=== PATIENT | female | born 1940 | race Caucasian/White ===

== ENCOUNTER 2018-01-01 12:23 | Inpatient (IN) | payer OTHER ==
[~2018-01-01] VITALS: Ht 160 cm; Wt 112.0 kg
[2018-01-01 12:24] VITALS: BP_SYST 164
[2018-01-01] MEDS ORDERED: methylPREDNISolone SOD SUCC/PF 62.5 MG/ML VIAL IVP ONE (12:45)
[2018-01-01] MEDS ORDERED: IPRATROPIUM BROM 0.5 MG/2.5 ML VIAL.NEB (ATROVENT) IH ONE (12:45)
[2018-01-01] MEDS ORDERED: ALBUTEROL SULFATE 0.083% 2.5 MG/3 ML VIAL.NEB IH ONE (12:45)
[2018-01-01] MEDS ORDERED: GLIM1TAB PO (12:49)
[2018-01-01] MEDS ORDERED: HYDR-4100 PO (12:49)
[2018-01-01] MEDS ORDERED: MONT10TA25 PO (12:49)
[2018-01-01] MEDS ORDERED: POTA8TAB4 PO (12:49)
[2018-01-01] MEDS ORDERED: METO25TA3 PO (12:49)
[2018-01-01] MEDS ORDERED: OMEP20CA10 PO (12:49)
[2018-01-01] MEDS ORDERED: VITD2000 PO (12:49)
[2018-01-01] MEDS ORDERED: NOR10 PO (12:49)
[2018-01-01] MEDS ORDERED: METO5TAB8 PO (12:49)
[2018-01-01] MEDS ORDERED: FURO-149 PO (12:49)
[2018-01-01] MEDS ORDERED: LINA5TAB2 PO (12:49)
[2018-01-01] MEDS ORDERED: LEVO50TA77 PO (12:49)
[2018-01-01] MEDS ORDERED: ASPI-1063 PO (12:49)
[2018-01-01] MEDS ORDERED: GABA-531 PO (12:49)
[2018-01-01] MEDS ORDERED: LATA2.5D6 OP (12:49)
[2018-01-01] MEDS ORDERED: ALBU8.5H8 INH (12:49)
[2018-01-01] MEDS ORDERED: ALLO100T91 PO (12:49)
[2018-01-01] MEDS ORDERED: NIFE90TA48 PO (12:49)
[2018-01-01 13:35] LABS: BASOPHILS % (AUTO) 0.4 % (0.0-2.0); EOSINOPHILS # (AUTO) 0.2 K/uL (0.0-0.4); EOSINOPHILS % (AUTO) 1.5 % (0.0-4.0); HEMATOCRIT 45.2 % (36-48); HEMOGLOBIN 14.6 g/dL (12.0-16.0); LYMPHOCYTES # (AUTO) 1.7 K/uL (1.0-5.5); MEAN CORPUSCULAR HEMOGLOBIN 28 pg (27-31); MEAN CORPUSCULAR HGB CONC 32 % (32-36); MEAN CORPUSCULAR VOLUME 86 fL (79.0-98.0); MONOCYTES # (AUTO) 0.7 K/uL (0.0-1.0); MONOCYTES % (AUTO) 6.4 % (1.7-9.3); NEUTROPHILS # (AUTO) 8.7 K/uL (1.8-7.7); NEUTROPHILS % (AUTO) 76.7 % (40.0-70.0); PLATELET COUNT (AUTO) 292 K/uL (130-430); RED BLOOD CELL COUNT(AUTO) 5.27 MIL/uL (4.2-6.2); RED CELL DISTRIBUTION WIDTH 16.5 % (9.0-15.0); WHITE BLOOD COUNT (AUTO) 11.3 K/uL (4.8-10.8)
[2018-01-01 14:19] LABS: INR 1.1 (0.8-1.2); PROTHROMBIN TIME 10.8 SECS (9.5-12.5)
[2018-01-01] MEDS ORDERED: ONDANSETRON HCL 4 MG/2 ML VIAL IVP ONE (14:30)
[2018-01-01 14:38] LABS: ANION GAP 9 (5-15); CALCIUM 10.3 mg/dL (8.4-11.0); CHLORIDE 97 mmol/L (98-107); CREATININE 1.42 mg/dL (0.55-1.30); GLUCOSE 163 mg/dL (70-99); POTASSIUM 3.3 mmol/L (3.5-5.1); SODIUM SERUM 134 mmol/L (136-145); UREA NITROGEN, BLOOD 19 mg/dL (8-21)
[2018-01-01 14:42] LABS: ALANINE AMINOTRANSFERASE 25 U/L (12-78); ALBUMIN 4.1 g/dL (3.4-4.8); ASPARTATE AMINOTRANSFERASE 20 U/L (10-37); TOTAL BILIRUBIN 1.1 mg/dL (0.0-1.0)
[2018-01-01 15:25] VITALS: BP_SYST 179
[2018-01-01] MEDS ORDERED: POTASSIUM CHLORIDE 20 MEQ TAB.PRT.SR PO PRN (16:00)
[2018-01-01] MEDS ORDERED: MAGNESIUM SULFATE 50 ML IV PRN (16:00)
[2018-01-01] MEDS ORDERED: MUPIROCIN 2% TOPICAL OINTMENT 22 GM NS PRN (16:00)
[2018-01-01] MEDS ORDERED: MORPHINE 2 MG/ML INJ. SYRINGE IVP PRN (16:00)
[2018-01-01] MEDS ORDERED: DOCUSATE SODIUM 100 MG CAPSULE PO PRN (16:00)
[2018-01-01] MEDS ORDERED: ONDANSETRON HCL 4 MG/2 ML VIAL IVP PRN (16:00)
[2018-01-01] MEDS ORDERED: DEXTROSE 50% JECT 50 ML DISP.SYRIN IVP PRN (16:00)
[2018-01-01] MEDS ORDERED: ACETAMINOPHEN 325 MG TABLET PO PRN (16:00)
[2018-01-01] MEDS ORDERED: LORazepam 2 MG/ML VIAL IVP PRN (16:00)
[2018-01-01] MEDS ORDERED: POTASSIUM CHLORIDE 20 MEQ TAB.PRT.SR PO ONE (17:00)
[2018-01-01] MEDS ORDERED: FUROSEMIDE 40 MG/4 ML VIAL IVP ONE (17:00)
[2018-01-01 17:12] VITALS: BP_SYST 172
[2018-01-01] MEDS: MORPHINE 2 MG/ML INJ. SYRINGE IVP PRN (17:19)
[2018-01-01] MEDS: INSULIN ASPART 100 UNITS/ML, 10 ML VIAL (NovoLOG) SUBCUT PRN ×2 (17:22→21:35)
[2018-01-01 17:44] VITALS: BP_SYST 172
[2018-01-01] MEDS ORDERED: ALBUTEROL MDI INHALATION 8 GM INH INH SCH (18:00)
[2018-01-01 20:00] VITALS: BP_SYST 170
[2018-01-01] MEDS: IPRATROPIUM/ALBUTEROL SULFATE 3 ML AMPUL.NEB INH SCH (20:24)
[2018-01-01] MEDS ORDERED: HEPARIN SODIUM,PORCINE 5000 UNITS/ML VIAL SUBCUT SCH (21:00)
[2018-01-01] MEDS ORDERED: ZOLPIDEM TARTRATE 5 MG TABLET PO PRN (21:00)
[2018-01-01] MEDS: ALLOPURINOL 100 MG TABLET (ZYLOPRIM) PO SCH (21:25)
[2018-01-01] MEDS: APIXABAN 2.5 MG TABLET PO SCH (21:25)
[2018-01-01] MEDS: MONTELUKAST 10 MG TABLET PO SCH (21:26)
[2018-01-01] MEDS: CARVEDILOL 3.125 MG TABLET (COREG) PO SCH (21:26)
[2018-01-01] MEDS: GABAPENTIN 300 MG CAPSULE PO SCH (21:27)
[2018-01-01] MEDS: HYDROcodone/ACETAMIN 10-325 MG TAB PO SCH (21:27)
[2018-01-01] MEDS: FUROSEMIDE 40 MG/4 ML VIAL IVP SCH (21:28)
[2018-01-02 01:09] VITALS: BP_SYST 158
[2018-01-02] MEDS: IPRATROPIUM/ALBUTEROL SULFATE 3 ML AMPUL.NEB INH SCH ×4 (01:37→20:09)
[2018-01-02 02:06] LABS: BILIRUBIN,URINE NEGATIVE (NEGATIVE); BLOOD, URINE 1+ (NEGATIVE); CLARITY/URINE CLEAR (CLEAR); COLOR,URINE YELLOW (YELLOW); GLUCOSE,URINE NEGATIVE (NEGATIVE); KETONES,URINE NEGATIVE (NEGATIVE); LEUKOCYTE ESTERASE ,URINE NEGATIVE (NEGATIVE); NITRITE, URINE NEGATIVE (NEGATIVE); PROTEIN URINE 1+ (NEGATIVE); UROBILINOGEN,URINE 0.2 (0.2-1.0)
[2018-01-02 02:09] LABS: BACTERIA,URINE MODERATE /HPF (None Seen); RBC,URINE 0-3 /HPF (0-3); WBC,URINE 0-3 /HPF (0-3)
[2018-01-02 04:15] VITALS: BP_SYST 143
[2018-01-02] MEDS ORDERED: cefTRIAXone 1 GM in D5W 50 ML IV ONE (06:30)
[2018-01-02] MEDS: LEVOTHYROXINE SODIUM 0.05 MG TABLET PO SCH (06:37)
[2018-01-02] MEDS: MORPHINE 2 MG/ML INJ. SYRINGE IVP PRN ×2 (06:38→15:44)
[2018-01-02] MEDS: INSULIN ASPART 100 UNITS/ML, 10 ML VIAL (NovoLOG) SUBCUT PRN ×2 (06:41→12:30)
[2018-01-02] MEDS ORDERED: cefTRIAXone 1 GM IVPB PREMIX 50 ML IV ONE (06:45)
[2018-01-02 07:26] LABS: BASOPHILS % (AUTO) 0.1 % (0.0-2.0); HEMATOCRIT 43.3 % (36-48); HEMOGLOBIN 14.1 g/dL (12.0-16.0); LYMPHOCYTES # (AUTO) 1.1 K/uL (1.0-5.5); LYMPHOCYTES % (AUTO) 10.5 % (20.5-51.5); MEAN CORPUSCULAR HEMOGLOBIN 28 pg (27-31); MEAN CORPUSCULAR HGB CONC 33 % (32-36); MEAN CORPUSCULAR VOLUME 85 fL (79.0-98.0); MONOCYTES # (AUTO) 0.3 K/uL (0.0-1.0); MONOCYTES % (AUTO) 3.2 % (1.7-9.3); NEUTROPHILS # (AUTO) 8.8 K/uL (1.8-7.7); NEUTROPHILS % (AUTO) 86.2 % (40.0-70.0); PLATELET COUNT (AUTO) 323 K/uL (130-430); RED BLOOD CELL COUNT(AUTO) 5.07 MIL/uL (4.2-6.2); RED CELL DISTRIBUTION WIDTH 16.2 % (9.0-15.0); WHITE BLOOD COUNT (AUTO) 10.2 K/uL (4.8-10.8)
[2018-01-02 07:31] LABS: ANION GAP 9 (5-15); CALCIUM 10.4 mg/dL (8.4-11.0); CHLORIDE 96 mmol/L (98-107); CREATININE 1.66 mg/dL (0.55-1.30); GLUCOSE 205 mg/dL (70-99); POTASSIUM 3.5 mmol/L (3.5-5.1); SODIUM SERUM 136 mmol/L (136-145); UREA NITROGEN, BLOOD 26 mg/dL (8-21)
[2018-01-02 08:34] VITALS: BP_SYST 168
[2018-01-02] MEDS: APIXABAN 2.5 MG TABLET PO SCH ×2 (11:00→21:47)
[2018-01-02] MEDS: GLIMEPIRIDE 2 MG TABLET PO SCH (11:01)
[2018-01-02] MEDS: GABAPENTIN 300 MG CAPSULE PO SCH ×3 (11:01→21:47)
[2018-01-02] MEDS: ALLOPURINOL 100 MG TABLET (ZYLOPRIM) PO SCH ×2 (11:01→21:48)
[2018-01-02] MEDS: ASPIRIN 81 MG TABLET(ECOTRIN) PO SCH (11:02)
[2018-01-02] MEDS: CARVEDILOL 3.125 MG TABLET (COREG) PO SCH ×2 (11:02→21:47)
[2018-01-02] MEDS: HYDROcodone/ACETAMIN 10-325 MG TAB PO SCH ×2 (11:03→21:48)
[2018-01-02] MEDS: FUROSEMIDE 40 MG/4 ML VIAL IVP SCH (11:03)
[2018-01-02] MEDS: NYSTATIN 15 GM TOPICAL POWDER TP SCH ×2 (11:15→21:53)
[2018-01-02] MEDS: LATANOPROST 2.5 ML DROPS (XALATAN) OP SCH (11:16)
[2018-01-02 13:57] VITALS: BP_SYST 116
[2018-01-02 16:10] VITALS: BP_SYST 124
[2018-01-02] MEDS ORDERED: FUROSEMIDE 40 MG TABLET PO ONE (18:00)
[2018-01-02] MEDS: MONTELUKAST 10 MG TABLET PO SCH (18:44)
[2018-01-02 20:00] VITALS: BP_SYST 123
[2018-01-03 00:53] VITALS: BP_SYST 135
[2018-01-03] MEDS: IPRATROPIUM/ALBUTEROL SULFATE 3 ML AMPUL.NEB INH SCH ×2 (01:00→09:06)
[2018-01-03] MEDS: LEVOTHYROXINE SODIUM 0.05 MG TABLET PO SCH (06:30)
[2018-01-03] MEDS ORDERED: MONT10TA22 PO (08:09)
[2018-01-03] MEDS ORDERED: LEVO500T20 PO (08:09)
[2018-01-03] MEDS ORDERED: NYST15PO2 TP (08:09)
[2018-01-03 08:16] VITALS: BP_SYST 159
[2018-01-03 08:26] LABS: BASOPHILS # (AUTO) 0.1 K/uL (0.0-0.2); BASOPHILS % (AUTO) 0.4 % (0.0-2.0); EOSINOPHILS # (AUTO) 0.2 K/uL (0.0-0.4); EOSINOPHILS % (AUTO) 1.7 % (0.0-4.0); HEMOGLOBIN 12.9 g/dL (12.0-16.0); LYMPHOCYTES # (AUTO) 3.2 K/uL (1.0-5.5); LYMPHOCYTES % (AUTO) 25.6 % (20.5-51.5); MEAN CORPUSCULAR HEMOGLOBIN 28 pg (27-31); MEAN CORPUSCULAR HGB CONC 33 % (32-36); MEAN CORPUSCULAR VOLUME 86 fL (79.0-98.0); MONOCYTES # (AUTO) 0.8 K/uL (0.0-1.0); MONOCYTES % (AUTO) 6.3 % (1.7-9.3); NEUTROPHILS # (AUTO) 8.2 K/uL (1.8-7.7); PLATELET COUNT (AUTO) 284 K/uL (130-430); RED BLOOD CELL COUNT(AUTO) 4.53 MIL/uL (4.2-6.2); RED CELL DISTRIBUTION WIDTH 16.1 % (9.0-15.0); WHITE BLOOD COUNT (AUTO) 12.5 K/uL (4.8-10.8)
[2018-01-03 08:38] LABS: ANION GAP 5 (5-15); CALCIUM 9.2 mg/dL (8.4-11.0); CHLORIDE 95 mmol/L (98-107); CREATININE 2.02 mg/dL (0.55-1.30); GLUCOSE 133 mg/dL (70-99); SODIUM SERUM 135 mmol/L (136-145); UREA NITROGEN, BLOOD 38 mg/dL (8-21)
[2018-01-03 08:55] LABS: POTASSIUM 2.9 mmol/L (3.5-5.1)
[2018-01-03] MEDS ORDERED: FUROSEMIDE 40 MG TABLET PO SCH (09:00)
[2018-01-03] MEDS ORDERED: cefTRIAXone 1 GM in D5W 50 ML IV SCH (09:00)
[2018-01-03] MEDS: ALLOPURINOL 100 MG TABLET (ZYLOPRIM) PO SCH (09:46)
[2018-01-03] MEDS: ASPIRIN 81 MG TABLET(ECOTRIN) PO SCH (09:46)
[2018-01-03] MEDS: GABAPENTIN 300 MG CAPSULE PO SCH (09:46)
[2018-01-03] MEDS: HYDROcodone/ACETAMIN 10-325 MG TAB PO SCH (09:46)
[2018-01-03] MEDS: GLIMEPIRIDE 2 MG TABLET PO SCH (09:47)
[2018-01-03] MEDS: APIXABAN 2.5 MG TABLET PO SCH (09:47)
[2018-01-03] MEDS: CARVEDILOL 3.125 MG TABLET (COREG) PO SCH (09:48)
[2018-01-03] MEDS: NYSTATIN 15 GM TOPICAL POWDER TP SCH (09:54)
[2018-01-03] MEDS: LATANOPROST 2.5 ML DROPS (XALATAN) OP SCH (09:55)
[2018-01-03 11:32] VITALS: BP_SYST 144
[2018-01-03 12:23] VITALS: BP_SYST 144
== END 2018-01-03 12:35 | disposition home or self-care (01) | DRG 682 ==
LOC: SED 12:23 → SMU 14:36
PROVIDERS: ADMIT General Practice; ATTEND General Practice
DX: N17.0 Acute kidney failure with tubular necrosis (principal); J96.01 Acute respiratory failure with hypoxia; J18.9 Pneumonia, unspecified organism; I13.0 Hypertensive heart and chronic kidney disease with heart failure and stage 1 through stage 4 chronic kidney disease, or unspecified chronic kidney disease; E11.22 Type 2 diabetes mellitus with diabetic chronic kidney disease; I27.20 Pulmonary hypertension, unspecified; E11.65 Type 2 diabetes mellitus with hyperglycemia; E83.42 Hypomagnesemia; I50.30 Unspecified diastolic (congestive) heart failure; J44.1 Chronic obstructive pulmonary disease with (acute) exacerbation; J45.901 Unspecified asthma with (acute) exacerbation; E87.1 Hypo-osmolality and hyponatremia; N39.0 Urinary tract infection, site not specified; J44.0 Chronic obstructive pulmonary disease with (acute) lower respiratory infection; I48.91 Unspecified atrial fibrillation; K21.9 Gastro-esophageal reflux disease without esophagitis; G89.29 Other chronic pain; E66.9 Obesity, unspecified; E87.6 Hypokalemia; M54.31 Sciatica, right side; N18.9 Chronic kidney disease, unspecified; M10.9 Gout, unspecified; Z88.2 Allergy status to sulfonamides; Z90.710 Acquired absence of both cervix and uterus; Z90.49 Acquired absence of other specified parts of digestive tract; Z88.0 Allergy status to penicillin
CPT/HCPCS: 36415; 36600; 71045; 80048; 80053; 81000-TC; 82803-TC; 82962; 83605; 83735-TC; 83880; 84484; 85025; 85610-TC; 85730-TC; 87040-TC; 93005; 93306; 94640; 94760; 96374; 96375; 99285; J0696; J1815; J1940; J2270; J2405; J2930; J3475; J7050; J7060

== ENCOUNTER 2019-01-25 12:59 | Inpatient (IN) | payer OTHER ==
[~2019-01-25] VITALS: Ht 157.5 cm; Wt 127.1 kg
[~2019-01-25 12:59] MED LIST: ALBU8.5H8 INH; ALLO100T91 PO; ASPI-1153 PO; FURO-149 PO; GABA-531 PO; GLIM1TAB PO; HYDR-4100 PO; LEVO500T20 PO; LINA5TAB2 PO; METO25TA3 PO; METO5TAB8 PO; MONT10TA22 PO; MONT10TA25 PO; NIFE90TA48 PO; NOR10 PO; NYST15PO2 TP; POTA8TAB4 PO; SYN50 PO; VITD2000 PO; XALEYE OP
[2019-01-25 13:14] VITALS: BP_SYST 143
--- NOTE | 2019-01-25 13:14 | NUR ---
Patient to ER bed 3 to gown for evaluation. Side rails up. Report given to Abdulaziz NOEL.
--- NOTE | 2019-01-25 13:35 | NUR ---
ER Dr. Solomon at bedside examining patient.
[2019-01-25] MEDS ORDERED: EZET10TA27 PO (13:47)
[2019-01-25] MEDS ORDERED: APIX2.5T PO (13:47)
--- NOTE | 2019-01-25 13:47 | NUR ---
Medication reconciliation completed with information provided by patient. Any prior medication reconciliation on file was reviewed and corrected.
--- NOTE | 2019-01-25 15:49 | NUR ---
Patient is awake, alert, and oriented x4. Patient reports falling in yesterday with right foot wedged under counter, pain from right hip to right foot 10/10 aching pain, left upper leg pain 10/10. Patient presents with BLE 3+ pitting edema, redness to left ankle.
[2019-01-25] MEDS ORDERED: NACL 0.9% 1,000 ML IV ONE ×3 (16:30→17:30)
--- NOTE | 2019-01-25 16:46 | NUR ---
Patient transported to radiology via gurney, accompanied by certified veterinary technician.
--- NOTE | 2019-01-25 16:52 | NUR ---
Returned from radiology, back to [facility].
[2019-01-25 17:01] LABS: ANION GAP 11 (5-15); CHLORIDE 97 mmol/L (98-107); CREATININE 2.55 mg/dL (0.55-1.30); GLUCOSE 213 mg/dL (70-99); POTASSIUM 4.3 mmol/L (3.5-5.1); SODIUM SERUM 132 mmol/L (136-145); UREA NITROGEN, BLOOD 71 mg/dL (8-21)
[2019-01-25 17:06] LABS: ALANINE AMINOTRANSFERASE 18 U/L (12-78); ALBUMIN 3.1 g/dL (3.4-4.8); ASPARTATE AMINOTRANSFERASE 21 U/L (10-37); TOTAL BILIRUBIN 1.3 mg/dL (0.0-1.0)
[2019-01-25 17:07] LABS: HEMATOCRIT 33.7 % (36-48); HEMOGLOBIN 10.7 g/dL (12.0-16.0); RED BLOOD CELL COUNT(AUTO) 3.91 MIL/uL (4.2-6.2); WHITE BLOOD COUNT (AUTO) 28.2 K/uL (4.8-10.8)
[2019-01-25 17:08] LABS: BASOPHILS % (AUTO) 0.2 % (0.0-2.0); EOSINOPHILS % (AUTO) 0.1 % (0.0-4.0); INR 1.2 (0.8-1.2); LYMPHOCYTES # (AUTO) 0.9 K/uL (1.0-5.5); LYMPHOCYTES % (AUTO) 3.2 % (20.5-51.5); MEAN CORPUSCULAR HEMOGLOBIN 27 pg (27-31); MEAN CORPUSCULAR HGB CONC 32 % (32-36); MEAN CORPUSCULAR VOLUME 86 fL (79.0-98.0); MONOCYTES # (AUTO) 0.4 K/uL (0.0-1.0); MONOCYTES % (AUTO) 1.3 % (1.7-9.3); NEUTROPHILS # (AUTO) 26.9 K/uL (1.8-7.7); NEUTROPHILS % (AUTO) 95.2 % (40.0-70.0); PLATELET COUNT (AUTO) 226 K/uL (130-430); PROTHROMBIN TIME 12.3 SECS (9.5-12.5); RED CELL DISTRIBUTION WIDTH 18.8 % (9.0-15.0)
[2019-01-25 17:09] LABS: BASOPHILS # (AUTO) 0.1 K/uL (0.0-0.2)
--- NOTE | 2019-01-25 17:13 | NUR ---
Troponin 0.[address] Solomon. Patient verbalized understanding.
[2019-01-25] MEDS ORDERED: VANCOMYCIN HCL 1,000 MG in NS 250 ML IV ONE (17:15)
[2019-01-25] MEDS ORDERED: MORPHINE 4 MG/ML INJ. SYRINGE IVP ONE (17:30)
[2019-01-25] MEDS ORDERED: VANCOMYCIN HCL 1000 MG/VIAL IV ONE (17:48)
--- NOTE | 2019-01-25 18:20 | NUR ---
# 16 FR Arzate catheter with use of sterile technique. Immediate return of 100 cc yellow urine noted. Bedside drainage bag placed below level of bladder. Urine sample collected and sent to lab. Pt tolerated procedure well. Patient arrived with arzate in place, changed due to standard of practice prior to admission. Patient unable to toilet self.
[2019-01-25 18:43] LABS: BILIRUBIN,URINE NEGATIVE (NEGATIVE); BLOOD, URINE 1+ (NEGATIVE); CLARITY/URINE CLEAR (CLEAR); COLOR,URINE YELLOW (YELLOW); GLUCOSE,URINE NEGATIVE (NEGATIVE); KETONES,URINE NEGATIVE (NEGATIVE); LEUKOCYTE ESTERASE ,URINE NEGATIVE (NEGATIVE); NITRITE, URINE NEGATIVE (NEGATIVE); PH,URINE 5.5 (5.0-8.0); PROTEIN URINE 2+ (NEGATIVE)
[2019-01-25 18:51] LABS: BACTERIA,URINE MODERATE /HPF (None Seen); WBC,URINE 0-3 /HPF (0-3)
[2019-01-25 18:52] LABS: URINE AMORPHOUS URATE 2+ /HPF (None Seen)
[2019-01-25] MEDS ORDERED: CLINDAMYCIN 600 MG in D5W 50 ML IV SCH (19:15)
[2019-01-25] MEDS: LEVOFLOXACIN 250 MG/D5W 50 ML IV SCH (19:15)
[2019-01-25] MEDS ORDERED: IPRATROPIUM/ALBUTEROL SULFATE 3 ML AMPUL.NEB (DUONEB) INH PRN (19:15)
--- NOTE | 2019-01-25 19:15 | NUR ---
Report given to BERT Barnes for continuation of care. Admission endorsed.
[2019-01-25] MEDS ORDERED: HYDR-3925 PO (19:24)
[2019-01-25] MEDS ORDERED: GABA-533 PO (19:24)
--- NOTE | 2019-01-25 20:41 | NUR ---
ADMISSION NOTE Received patient from ER via gurney. Patient admitted with diagnosis of Sepsis. Patient is awake, alert, oriented X 3. Patient oriented to hospital room, call light, toileting, pain management and safety-teach back done. Patient informed that BERT Mari will be primary nurse and that their room number is 120B. Personal belongings checked and Belongings List documented. Call light within reach.
[2019-01-25 20:49] VITALS: BP_SYST 110
[2019-01-25 20:57] VITALS: BP_SYST 118
[2019-01-25] MEDS ORDERED: APIXABAN 2.5 MG TABLET PO SCH (21:00)
[2019-01-25] MEDS: NYSTATIN 15 GM TOPICAL POWDER TP SCH (21:00)
[2019-01-25] MEDS: CLINDAMYCIN 600 MG in D5W 50 ML IV SCH (21:32)
[2019-01-25] MEDS: FUROSEMIDE 40 MG/4 ML VIAL IVP SCH (21:34)
[2019-01-25] MEDS: LACTOBACILLUS RHAMNOSUS GG 1 CAP CAPSULE PO SCH (21:36)
[2019-01-25] MEDS: GABAPENTIN 300 MG CAPSULE PO SCH (21:37)
[2019-01-25] MEDS: ALLOPURINOL 100 MG TABLET (ZYLOPRIM) PO SCH (21:38)
[2019-01-25] MEDS: HYDROcodone/ACETAMIN 10-325 MG TAB PO SCH (21:39)
--- NOTE | 2019-01-25 21:39 | NUR ---
MED PASS PATIENT DUE MEDICATIONS GIVEN AND TOLERATED. VITAL SIGNS STABLE.
--- NOTE | 2019-01-25 22:23 | NUR ---
CONSULT CONSULT CALLED FOR DR. AVE RODARTE I SPOKE WITH ANEL EXCHANGE REASON FOR CONSULT: SEPSIS REQUESTING CONSULT: DR. ZARATE HOTEL SERVER PHONE NUMBER: [phone]
--- NOTE | 2019-01-25 22:26 | NUR ---
CONSULT CONSULT CALLED FOR DR. ANTONIO PATEL I SPOKE WITH ANEL EXCHANGE REASON FOR CONSULT: ASTHMA EXACERBATION REQUESTING CONSULT: DR. ZARATE ASSEMBLER WET WASH PHONE NUMBER: [phone] Addendum: 01/25/19 at 2229 by Laury Lepe [place]/ I ENTERED THE WRONG EXCHANGE PHONE NUMER DR. ANTONIO PATEL EXCHANGE # [phone]
--- NOTE | 2019-01-25 22:35 | NUR ---
CONSULT CONSULT CALLED FOR DR. ZUNIGA I SPOKE WITH HANNAH EXCHANGE REASON FOR CONSULT: CHF/A FIB REQUESTING CONSULT: DR. ZARATE MANAGER MANAGEMENT PHONE NUMBER: [phone]
[2019-01-25] MEDS: IPRATROPIUM/ALBUTEROL SULFATE 3 ML AMPUL.NEB (DUONEB) INH SCH (23:11)
[2019-01-26 00:06] VITALS: BP_SYST 105
--- NOTE | 2019-01-26 00:30 | NUR ---
ROUNDS PATIENT RESTING IN BED. NO DISTRESS NOTED. VITAL SIGNS STABLE. CALL LIGHT WITH IN REACH.
[2019-01-26] MEDS: CLINDAMYCIN 600 MG in D5W 50 ML IV SCH (02:00)
[2019-01-26] MEDS: IPRATROPIUM/ALBUTEROL SULFATE 3 ML AMPUL.NEB (DUONEB) INH SCH ×2 (03:14→15:00)
[2019-01-26] MEDS ORDERED: INSULIN REGULAR, HUMAN 100 UNITS/ML, 10 ML VIAL (novoLIN R) SUBCUT PRN (04:15)
[2019-01-26] MEDS ORDERED: DEXTROSE 50% JECT 50 ML DISP.SYRIN IVP PRN (04:15)
[2019-01-26] MEDS: LEVOTHYROXINE SODIUM 0.05 MG TABLET PO SCH (07:00)
[2019-01-26 07:39] LABS: ANION GAP 13 (5-15); CALCIUM 8.1 mg/dL (8.4-11.0); CHLORIDE 102 mmol/L (98-107); CREATININE 2.39 mg/dL (0.55-1.30); GLUCOSE 160 mg/dL (70-99); POTASSIUM 3.8 mmol/L (3.5-5.1); SODIUM SERUM 139 mmol/L (136-145); UREA NITROGEN, BLOOD 66 mg/dL (8-21)
[2019-01-26 07:58] LABS: ALANINE AMINOTRANSFERASE 13 U/L (12-78); ALBUMIN 2.5 g/dL (3.4-4.8); ASPARTATE AMINOTRANSFERASE 16 U/L (10-37); FREE T4 (FREE THYROXINE) 1.2 ng/dl (0.8-1.5); PHOSPHORUS 3.5 mg/dL (2.7-4.5); THYROID STIMULATING HORMONE 2.59 uIu/mL (0.36-3.74); TOTAL BILIRUBIN 0.9 mg/dL (0.0-1.0); TOTAL IRON BIND. CAPACITY 175 ug/dL (250-450)
[2019-01-26 08:15] LABS: HEMATOCRIT 31.3 % (36-48); HEMOGLOBIN 9.8 g/dL (12.0-16.0); MEAN CORPUSCULAR VOLUME 87 fL (79.0-98.0); RED BLOOD CELL COUNT(AUTO) 3.59 MIL/uL (4.2-6.2); WHITE BLOOD COUNT (AUTO) 21.8 K/uL (4.8-10.8)
[2019-01-26 08:16] LABS: BASOPHILS % (AUTO) 0.1 % (0.0-2.0); LYMPHOCYTES % (AUTO) 3.3 % (20.5-51.5); MEAN CORPUSCULAR HEMOGLOBIN 27 pg (27-31); MEAN CORPUSCULAR HGB CONC 31 % (32-36); MONOCYTES % (AUTO) 2.2 % (1.7-9.3); NEUTROPHILS % (AUTO) 94.4 % (40.0-70.0); PLATELET COUNT (AUTO) 198 K/uL (130-430); RED CELL DISTRIBUTION WIDTH 18.3 % (9.0-15.0)
[2019-01-26 08:17] LABS: LYMPHOCYTES # (AUTO) 0.7 K/uL (1.0-5.5); MONOCYTES # (AUTO) 0.5 K/uL (0.0-1.0); NEUTROPHILS # (AUTO) 20.6 K/uL (1.8-7.7)
[2019-01-26] MEDS ORDERED: NIFEDIPINE 90 MG TABLET.SA (PROCARDIA XL 90 MG) PO SCH (09:00)
[2019-01-26] MEDS ORDERED: FUROSEMIDE 40 MG TABLET PO SCH (09:00)
[2019-01-26] MEDS: METOPROLOL SUCCINATE 25 MG TAB.SR.24H (TOPROL XL) PO SCH (09:00)
[2019-01-26] MEDS ORDERED: METOLAZONE 5 MG TABLET PO SCH (09:00)
[2019-01-26] MEDS: FUROSEMIDE 40 MG/4 ML VIAL IVP SCH ×2 (09:00→21:40)
[2019-01-26] MEDS: NEPHROVITE, (FOLIC ACID/VITAMIN B COMP W-C 1 TAB) PO SCH (09:00)
[2019-01-26] MEDS: HYDROcodone/ACETAMIN 10-325 MG TAB PO SCH ×2 (09:00→21:40)
[2019-01-26] MEDS: GABAPENTIN 300 MG CAPSULE PO SCH ×3 (09:00→21:41)
[2019-01-26] MEDS: GLIMEPIRIDE 2 MG TABLET PO SCH (09:00)
[2019-01-26] MEDS: LATANOPROST 2.5 ML DROPS (XALATAN) OP SCH (09:00)
[2019-01-26] MEDS: NYSTATIN 15 GM TOPICAL POWDER TP SCH ×2 (09:00→21:41)
[2019-01-26] MEDS: LACTOBACILLUS RHAMNOSUS GG 1 CAP CAPSULE PO SCH ×2 (09:00→21:40)
[2019-01-26] MEDS: EZETIMIBE 10 MG TABLET PO SCH (10:00)
[2019-01-26] MEDS: CHOLECALCIFEROL (VITAMIN D3) 2,000 UNIT TABLET PO SCH (10:00)
[2019-01-26] MEDS: ALLOPURINOL 100 MG TABLET (ZYLOPRIM) PO SCH ×2 (10:00→21:41)
--- NOTE | 2019-01-26 10:00 | NUR ---
DUE MEDICATION GIVEN ORDERED. LASIX IV AND LOPRESSOR PO TABLET NOT GIVEN. BP IS 113/40.
--- NOTE | 2019-01-26 10:08 | NUR ---
Nutrition Update Mikey Scale 16 noted. Pt admitted for sepsis. Diet: cardiac, CCHO low carb-45 gm BMI: 52.6 kg/m2 RD to follow per nutrition care standards.
--- NOTE | 2019-01-26 10:20 | NUR ---
PATIENT STILL REFUSING TO HAVE CT SCAN OF THE PELVES AND LUMBAR SPINE WITHOUT CONTRAST.
--- NOTE | 2019-01-26 10:31 | NUR ---
BOTH ARMS HAS SCRATCHES. NO BLEEDING NOTED. DRY/INTACT.
--- NOTE | 2019-01-26 12:15 | NUR ---
dr gaspar see the patient. will continue to monitor patients status.
[2019-01-26 12:30] VITALS: BP_SYST 100
[2019-01-26] MEDS ORDERED: KETOROLAC TROMETHAMINE 15 MG VIAL IVP ONE (12:30)
[2019-01-26] MEDS ORDERED: ONDANSETRON HCL 4 MG/2 ML VIAL IVP PRN (12:45)
[2019-01-26] MEDS ORDERED: ACETAMINOPHEN 325 MG TABLET PO PRN (12:45)
[2019-01-26] MEDS ORDERED: MORPHINE 4 MG/ML INJ. SYRINGE IVP PRN ×2 (12:45)
--- NOTE | 2019-01-26 12:57 | NUR ---
morphine sulfate 4 mg iv given before ct scan of the pelves and abdomen
--- NOTE | 2019-01-26 12:58 | NUR ---
latest bs is 213mg/dl. coverage given.
[2019-01-26] MEDS: INSULIN Lispro 100 UNITS/ML VIAL (humaLOG) SUBCUT PRN ×3 (13:06→21:39)
--- NOTE | 2019-01-26 13:48 | NUR ---
Nephrology consult called: for Dr. Dacosta, regarding renal failure, ordered by Dr. Topete, spoke with Soleded
[2019-01-26] MEDS: SOD FERRIC GLUC COMPLEX/SUC 125 MG in NS 100 ML IV SCH (14:26)
--- NOTE | 2019-01-26 14:49 | NUR ---
Dietitian Recommendations *Recommend continuing cardiac, CCHO low carb-45 gm diet per MD *Low-carb snacks daily BID LP, RD Please refer to Nutrition Assessment for details.
--- NOTE | 2019-01-26 15:00 | NUR ---
patient were able to go for Ct abdomen/pelves and lumbar spine.
[2019-01-26 16:07] VITALS: BP_SYST 109
--- NOTE | 2019-01-26 16:50 | NUR ---
due medication given as ordered.
--- NOTE | 2019-01-26 18:00 | NUR ---
latest bs is 218 mg/dl. coverage given as ordered.
[2019-01-26] MEDS: MONTELUKAST 10 MG TABLET PO SCH (18:23)
--- NOTE | 2019-01-26 18:30 | NUR ---
seen by dr ortez nephrology.
--- NOTE | 2019-01-26 18:52 | NUR ---
patient is stable. no pain noted.
--- NOTE | 2019-01-26 19:15 | NUR ---
OPENING NOTE Received report from Analia. Patient resting in bed awake, alert, oriented x4. Breathing unlabored and even on 3L oxygen via NC. No signs of distress, no needs at this time. Fall and safety precautions in place. Bed in lowest position, brake on, alarm on, call light within reach. Meza catheter draining via gravity. Pillow support. Will continue to monitor.
[2019-01-26 20:00] VITALS: BP_SYST 123
--- NOTE | 2019-01-26 20:03 | NUR ---
PAGED PAGED DR. GARBER FOR ORDERS. TRIED TO CALL BUT THERE IS NO EXCHANGE AND NO VOICE MAIL TO LEAVE A MESSEAGE
--- NOTE | 2019-01-26 20:10 | NUR ---
Unable to reach Dr. Dacosta. Pharmacy wants to clarify albumin order. Dr. Dacosta ordered albumin x3 doses but start date is 01/26 and end date is 01/29, so to pharmacy it looks liked 3 days of 3 doses each equaling 9 doses total over a 3 day period. Need to find out if he wants 3 doses total or 9 doses total. Will administer first dose of albumin as ordered and will have day shift nurse follow up in the morning regarding remaining doses.
[2019-01-26] MEDS: APIXABAN 2.5 MG TABLET PO SCH (21:38)
--- NOTE | 2019-01-26 21:45 | NUR ---
Blood sugar 162. Administered 2 units of insulin per PRN insulin sliding scale.
[2019-01-26] MEDS: LEVOFLOXACIN 250 MG/D5W 50 ML IV SCH (21:56)
--- NOTE | 2019-01-26 23:18 | NUR ---
Patient resting in bed awake, alert, oriented x4. Breathing unlabored and even on 3L oxygen via NC. No signs of distress, no needs at this time. Fall and safety precautions in place. Bed in lowest position, brake on, alarm on, call light within reach. Meza catheter draining via gravity. Pillow support. Will continue to monitor.
[2019-01-27] MEDS: ALBUMIN HUMAN 25% 50 ML IV SCH ×4 (00:05→20:45)
--- NOTE | 2019-01-27 01:10 | NUR ---
Patient resting in bed with eyes closed.. Breathing unlabored and even on 3L oxygen via NC. No signs of distress, no needs at this time. Fall and safety precautions in place. Bed in lowest position, brake on, alarm on, call light within reach. Meza catheter draining via gravity. Pillow support. Will continue to monitor.
[2019-01-27 01:13] VITALS: BP_SYST 125
--- NOTE | 2019-01-27 03:50 | NUR ---
Patient resting in bed with eyes closed. Breathing unlabored and even on 3L oxygen via NC. No signs of distress, no needs at this time. Fall and safety precautions in place. Bed in lowest position, brake on, alarm on, call light within reach. Meza catheter draining via gravity. Pillow support. Will continue to monitor.
[2019-01-27] MEDS: LEVOTHYROXINE SODIUM 0.05 MG TABLET PO SCH (06:06)
[2019-01-27] MEDS: INSULIN Lispro 100 UNITS/ML VIAL (humaLOG) SUBCUT PRN ×3 (06:07→17:31)
--- NOTE | 2019-01-27 06:08 | NUR ---
Med pass. Blood sugar 108. No insulin coverage needed.
--- NOTE | 2019-01-27 06:50 | NUR ---
CLOSING NOTE Patient resting in bed awake, alert, oriented x4. Breathing unlabored and even on 3L oxygen via NC. No signs of distress, no needs at this time. Fall and safety precautions in place. Bed in lowest position, brake on, alarm on, call light within reach. Meza catheter draining via gravity. Pillow support. Will endorse cares to day shift nurse. Addendum: 01/27/19 at 0721 by Jeimy Pedersen RN Endorsed albumin order clarification to Analia. She needs to follow up with Dr. Dacosta and let pharmacy know.
--- NOTE | 2019-01-27 07:15 | NUR ---
received report at the bedside. from nite nurse. patient is stable. no complained made so far. still w/ oxygen 2lnc. no sob nor acute distress noted. has sl at the left ac. #22. dry and intact. bed in low position. call ligths within reach.
[2019-01-27 07:52] LABS: RED BLOOD CELL COUNT(AUTO) 3.36 MIL/uL (4.2-6.2); WHITE BLOOD COUNT (AUTO) 20.6 K/uL (4.8-10.8)
[2019-01-27 07:53] VITALS: BP_SYST 116
[2019-01-27 07:53] LABS: HEMATOCRIT 29.1 % (36-48); MEAN CORPUSCULAR HEMOGLOBIN 27 pg (27-31); MEAN CORPUSCULAR HGB CONC 31 % (32-36); MEAN CORPUSCULAR VOLUME 87 fL (79.0-98.0); RED CELL DISTRIBUTION WIDTH 18.3 % (9.0-15.0)
[2019-01-27 07:54] LABS: BASOPHILS % (AUTO) 0.1 % (0.0-2.0); EOSINOPHILS # (AUTO) 0.1 K/uL (0.0-0.4); EOSINOPHILS % (AUTO) 0.7 % (0.0-4.0); LYMPHOCYTES # (AUTO) 1.2 K/uL (1.0-5.5); LYMPHOCYTES % (AUTO) 5.7 % (20.5-51.5); MONOCYTES # (AUTO) 0.9 K/uL (0.0-1.0); MONOCYTES % (AUTO) 4.6 % (1.7-9.3); NEUTROPHILS # (AUTO) 18.4 K/uL (1.8-7.7); NEUTROPHILS % (AUTO) 88.9 % (40.0-70.0); PLATELET COUNT (AUTO) 187 K/uL (130-430)
[2019-01-27 07:56] LABS: ANION GAP 14 (5-15); CALCIUM 8.5 mg/dL (8.4-11.0); CHLORIDE 100 mmol/L (98-107); CREATININE 2.36 mg/dL (0.55-1.30); GLUCOSE 111 mg/dL (70-99); POTASSIUM 3.6 mmol/L (3.5-5.1); SODIUM SERUM 137 mmol/L (136-145); UREA NITROGEN, BLOOD 70 mg/dL (8-21)
[2019-01-27] MEDS: IPRATROPIUM/ALBUTEROL SULFATE 3 ML AMPUL.NEB (DUONEB) INH SCH ×3 (08:01→20:42)
[2019-01-27 08:12] LABS: ALBUMIN 2.5 g/dL (3.4-4.8); ASPARTATE AMINOTRANSFERASE 22 U/L (10-37); PHOSPHORUS 4.3 mg/dL (2.7-4.5); TOTAL BILIRUBIN 0.7 mg/dL (0.0-1.0)
[2019-01-27 08:23] LABS: ALANINE AMINOTRANSFERASE 20 U/L (12-78)
--- NOTE | 2019-01-27 08:23 | NUR ---
PAGED PAGED MARGIE FELICIANO AT [phone] SPOKE WITH ANNIA.
--- NOTE | 2019-01-27 08:36 | NUR ---
awaiting for dr flannery to call back for verifying orders.
[2019-01-27] MEDS: METOPROLOL SUCCINATE 25 MG TAB.SR.24H (TOPROL XL) PO SCH (08:53)
[2019-01-27] MEDS: FUROSEMIDE 40 MG/4 ML VIAL IVP SCH ×2 (08:53→20:46)
[2019-01-27] MEDS: NEPHROVITE, (FOLIC ACID/VITAMIN B COMP W-C 1 TAB) PO SCH (08:54)
[2019-01-27] MEDS: APIXABAN 2.5 MG TABLET PO SCH ×2 (08:56→20:43)
[2019-01-27] MEDS: GLIMEPIRIDE 2 MG TABLET PO SCH (08:57)
[2019-01-27] MEDS: GABAPENTIN 300 MG CAPSULE PO SCH ×3 (08:59→20:41)
[2019-01-27] MEDS: HYDROcodone/ACETAMIN 10-325 MG TAB PO SCH ×2 (08:59→20:44)
[2019-01-27] MEDS: LACTOBACILLUS RHAMNOSUS GG 1 CAP CAPSULE PO SCH ×2 (08:59→20:44)
[2019-01-27] MEDS: CHOLECALCIFEROL (VITAMIN D3) 2,000 UNIT TABLET PO SCH (08:59)
[2019-01-27] MEDS: LATANOPROST 2.5 ML DROPS (XALATAN) OP SCH (09:00)
--- NOTE | 2019-01-27 09:09 | NUR ---
due medication given at this time. made comfortable. passing out gases. no bm yet
[2019-01-27] MEDS: NYSTATIN 15 GM TOPICAL POWDER TP SCH ×2 (10:30→21:14)
[2019-01-27] MEDS: EZETIMIBE 10 MG TABLET PO SCH (10:32)
[2019-01-27] MEDS: ALLOPURINOL 100 MG TABLET (ZYLOPRIM) PO SCH ×2 (10:32→20:43)
[2019-01-27] MEDS: SOD FERRIC GLUC COMPLEX/SUC 125 MG in NS 100 ML IV SCH (12:12)
--- NOTE | 2019-01-27 12:13 | NUR ---
ferllicit iv given at this time. resting
[2019-01-27 12:53] VITALS: BP_SYST 112
--- NOTE | 2019-01-27 14:00 | NUR ---
made comfortable. assists to have bedpan
[2019-01-27 16:19] VITALS: BP_SYST 108
[2019-01-27] MEDS: MONTELUKAST 10 MG TABLET PO SCH (17:29)
--- NOTE | 2019-01-27 17:40 | NUR ---
latest bs is 167 mg/dl. coverage given.
[2019-01-27] MEDS ORDERED: EPOETIN ALFA 4,000 UNITS/ML VIAL SUBCUT ONE (18:00)
--- NOTE | 2019-01-27 18:34 | NUR ---
RESTING AND STABLE
[2019-01-27 19:53] VITALS: BP_SYST 132
[2019-01-27] MEDS: LEVOFLOXACIN 250 MG/D5W 50 ML IV SCH (19:55)
--- NOTE | 2019-01-27 20:30 | NUR ---
ROUNDS/IV Received patient lying in bed, aox4, no sob noted, vitals stable, on 2L nc, IV line infiltrated, new IV line placed on right forearm with 22 gauge catheter, secured with opsite and tape, administered IV antibiotic, plan of care discussed, patient verbalized understanding, oriented to use call light for nurse assistance, safety precautions in place, will monitor.
--- NOTE | 2019-01-27 22:40 | NUR ---
RN ROUNDS Patient resting quietly in bed, due medications administered, blood sugar check of 163, patient compliant with fluid restriction, verbalized understanding, repositioned for comfort, call light remains within reach, safety measures in place, will monitor. Addendum: 01/28/19 at 0249 by Elke Torres RN no sliding scale administered, patient will be npo for HIDA in the am.
--- NOTE | 2019-01-28 00:11 | NUR ---
RN ROUNDS Patient asleep, respirations even and unlabored, vital signs stable. Safety precautions in place, call light remains within reach, will closely monitor.
[2019-01-28 00:48] VITALS: BP_SYST 127
--- NOTE | 2019-01-28 02:07 | NUR ---
RN ROUNDS Patient asleep, respirations even and unlabored, remains on 02 2l NC, Safety precautions in place, call light remains within reach, will closely monitor.
--- NOTE | 2019-01-28 04:15 | NUR ---
RN ROUNDS Patient continues to sleep, respirations even and unlabored, remains on 02 2l NC, Safety precautions in place, call light remains within reach, will monitor.
[2019-01-28] MEDS: LEVOTHYROXINE SODIUM 0.05 MG TABLET PO SCH (05:21)
--- NOTE | 2019-01-28 06:34 | NUR ---
RN ROUNDS Patient awake and resting quietly in bed, respirations even and unlabored, remains on 02 2l NC, blood sugar check this am of 99, patient npo and compliant, repositioned for comfort, call light remains within reach, safety measures maintained, will continue to monitor until report given to am nurse.
[2019-01-28 07:10] LABS: ANION GAP 10 (5-15); CALCIUM 9.3 mg/dL (8.4-11.0); CHLORIDE 98 mmol/L (98-107); CREATININE 2.25 mg/dL (0.55-1.30); GLUCOSE 102 mg/dL (70-99); POTASSIUM 3.4 mmol/L (3.5-5.1); SODIUM SERUM 133 mmol/L (136-145); UREA NITROGEN, BLOOD 72 mg/dL (8-21)
[2019-01-28 07:27] LABS: HEMATOCRIT 28.9 % (36-48); HEMOGLOBIN 9.2 g/dL (12.0-16.0); RED BLOOD CELL COUNT(AUTO) 3.35 MIL/uL (4.2-6.2); WHITE BLOOD COUNT (AUTO) 14.3 K/uL (4.8-10.8)
[2019-01-28 07:28] LABS: BASOPHILS % (AUTO) 0.1 % (0.0-2.0); EOSINOPHILS % (AUTO) 2.8 % (0.0-4.0); LYMPHOCYTES # (AUTO) 1.3 K/uL (1.0-5.5); LYMPHOCYTES % (AUTO) 9.4 % (20.5-51.5); MEAN CORPUSCULAR HEMOGLOBIN 27 pg (27-31); MEAN CORPUSCULAR HGB CONC 32 % (32-36); MEAN CORPUSCULAR VOLUME 86 fL (79.0-98.0); MONOCYTES # (AUTO) 0.9 K/uL (0.0-1.0); MONOCYTES % (AUTO) 6.4 % (1.7-9.3); NEUTROPHILS # (AUTO) 11.6 K/uL (1.8-7.7); NEUTROPHILS % (AUTO) 81.3 % (40.0-70.0); PLATELET COUNT (AUTO) 208 K/uL (130-430); RED CELL DISTRIBUTION WIDTH 18.9 % (9.0-15.0)
[2019-01-28 07:29] LABS: EOSINOPHILS # (AUTO) 0.4 K/uL (0.0-0.4)
[2019-01-28] MEDS: IPRATROPIUM/ALBUTEROL SULFATE 3 ML AMPUL.NEB (DUONEB) INH SCH ×2 (07:37→15:48)
[2019-01-28 07:49] VITALS: BP_SYST 146
--- NOTE | 2019-01-28 08:00 | NUR ---
Note Pt resting in bed watching television. Pt kept NPO for HIDA scan procedure. No SOB/resp distress or severe pain/discomfort noted at this time. Pt is on Oxymizer at 10L. IV in right forearm intact and patent at this time. Meza catheter intact and draining well. Tele unit attached and intact at this time. Call light within reach at this time.
[2019-01-28] MEDS: METOPROLOL SUCCINATE 25 MG TAB.SR.24H (TOPROL XL) PO SCH (09:24)
[2019-01-28] MEDS: GABAPENTIN 300 MG CAPSULE PO SCH ×2 (09:25→15:19)
[2019-01-28] MEDS: LACTOBACILLUS RHAMNOSUS GG 1 CAP CAPSULE PO SCH (09:25)
[2019-01-28] MEDS: ALLOPURINOL 100 MG TABLET (ZYLOPRIM) PO SCH (09:25)
[2019-01-28] MEDS: NEPHROVITE, (FOLIC ACID/VITAMIN B COMP W-C 1 TAB) PO SCH (09:25)
[2019-01-28] MEDS: CHOLECALCIFEROL (VITAMIN D3) 2,000 UNIT TABLET PO SCH (09:26)
[2019-01-28] MEDS: GLIMEPIRIDE 2 MG TABLET PO SCH (09:26)
[2019-01-28] MEDS: HYDROcodone/ACETAMIN 10-325 MG TAB PO SCH (09:26)
[2019-01-28] MEDS: EZETIMIBE 10 MG TABLET PO SCH (09:26)
[2019-01-28] MEDS: APIXABAN 2.5 MG TABLET PO SCH (09:28)
[2019-01-28] MEDS: LATANOPROST 2.5 ML DROPS (XALATAN) OP SCH (09:32)
[2019-01-28] MEDS: ALBUMIN HUMAN 25% 50 ML IV SCH ×2 (09:33→15:19)
[2019-01-28] MEDS: FUROSEMIDE 40 MG/4 ML VIAL IVP SCH (09:33)
[2019-01-28] MEDS: NYSTATIN 15 GM TOPICAL POWDER TP SCH (09:34)
--- NOTE | 2019-01-28 10:00 | NUR ---
Note 0905 - Imani from [facility] came to room to explain procedure and take pt down for study. Pt refused the HIDA scan, as she is unable to lie down flat for the procedure. Dr Topete called and notified. Order to resume diet and PO medications given at this time. Pt's breakfast ordered at this time. PO medications administered at this time as well. No needs noted. 0944 - Dr Topete at bedside doing assessment. Questions/concerns were answered at this time. Call light within reach.
--- NOTE | 2019-01-28 11:20 | NUR ---
Note Pt's blood sugar was 162. Pt refused insulin at this time. Stated she just ate her breakfast, that is why blood sugar is a little high.
[2019-01-28 12:40] VITALS: BP_SYST 121
[2019-01-28] MEDS: SOD FERRIC GLUC COMPLEX/SUC 125 MG in NS 100 ML IV SCH (13:25)
--- NOTE | 2019-01-28 14:00 | NUR ---
Note Dr Garcia at bedside assessing pt at this time. Questions/concerns were answered at this time. Call light within reach.
--- NOTE | 2019-01-28 15:44 | NUR ---
PCP APPT 7 DAYS POST DISCHARGE/ CHF PROTOCOL APPOINTMENT MADE TO SEE HER PRIMARY CARE PHYSICIAN DR JAMES ( TEL# [phone]) ON January AT 1:30 FOR FF-UP. PATIENT MADE AWARE
--- NOTE | 2019-01-28 15:44 | NUR ---
ARRANGED FOR A F/U APPT WITH DR ROSA SUAREZ ON FEBRUARY 02, 2019, THURSDAY AT 1330. SPOKE TO CHELSEY.
[2019-01-28 15:48] VITALS: BP_SYST 127
--- NOTE | 2019-01-28 16:08 | NUR ---
Discharge Planning: [facility] faxed referral to [facility] (f [phone] p [phone]). Addendum: 01/29/19 at 1455 by Lydia Avendano RN Case management: Late entry, per Mary. MOREIRA at [facility]; [facility] is arranged to see the pt. on Wednesday 01/31.
[2019-01-28] MEDS ORDERED: LEVO750T45 PO (16:20)
[2019-01-28] MEDS ORDERED: CLIN300C11 PO (16:21)
[2019-01-28] MEDS ORDERED: LACT1CAP71 PO (16:21)
[2019-01-28 16:38] VITALS: BP_SYST 127
--- NOTE | 2019-01-28 16:40 | NUR ---
Note Pt states that family will be available to pickup pt around 6.30pm or 7pm. Pt resting in bed. Tele unit was dc'd and returned to veterinary technology instructor. No needs noted. Call light within reach.
[2019-01-28] MEDS: MONTELUKAST 10 MG TABLET PO SCH (17:11)
--- NOTE | 2019-01-28 17:13 | NUR ---
Note Pt refused Insulin at this time. Blood sugar 185
[2019-01-28] MEDS ORDERED: POTASSIUM CHLORIDE 20 MEQ TAB.PRT.SR PO ONE (17:30)
[2019-01-28 18:02] VITALS: BP_SYST 130
--- NOTE | 2019-01-28 18:30 | NUR ---
Note Pt's tele unit was dc'd and returned to campus monitor. Pt's discharge instructions and prescription given. Pt's questions/concerns were answered at this time. Pt wants to wait till family comes to get dressed and packed. No SOB/resp distress or severe chest pain/discomfort was noted all shift. Pt did work with PT this afternoon and tolerated ambulation well. Meza catheter intact and draining well at this time. Pt is on O2 at 2L/nc at this time. No needs noted. Call light within reach.
--- NOTE | 2019-01-28 19:25 | NUR ---
NOTE PT OFF THE FLOOR VIA WHEELCHAIR WITH ALL HER BELONGINGS AND DISCHARGE PAPERWORK/ PRESCRIPTION. Pt was accompanied by her niece and nephew of the floor to private car. Pt's Meza catheter was dc'd and IV in right hand dc'd as well at this time. No SOB/resp distress or pain noted at this time. Pt dressed in street clothes. Addendum: 01/28/19 at 1931 by Jessica Worrell RN Pt was checked on q1' and PRN all shift for needs and care.
--- NOTE | 2019-01-29 14:55 | NUR ---
Case management: Late entry, harish received call from pt's niece/Chayito , expressed her concerns that the pt. could not get off BSC and unable to stand. She requested pt admit to a intermediate instead. HARISH s/w Yajaira oncall director case management at [facility] whom took the case and consult with her md. After the review,the pt. is authorized for snf from home. Per Yajaira request and Chayito agreement, HARISH faxed the referral inquiry to [facility] /contracted with [facility]. >> Dr. Barajas/[facility] accepted the pt. for continuation of care. Per Divine, the pt is accepted and gave bed assignment to room # 11A . Chayito agreed with the transfer as planed. Divine will contact Chayito for the admission/transfer time. harish Kyle director made aware. HARISH Gates /[facility] # [phone] Chayito/[place] # [phone]. Divine/[facility] # [phone], fax # [phone]
--- NOTE | 2019-02-02 13:24 | NUR ---
DISCHARGE FOLLOW UP PHONE CALL: Pt admitted to [facility] per notes. No follow up call needed at this time.
[2019-02-05 13:59] LABS: CREATININE, URINE 59.3 mg/dL; MICROALBUMIN/CREAT RATIO, UR 178.8 MG/G CRE (0.0-30.0)
== END 2019-01-28 19:25 | disposition home health service (06) | DRG 871 ==
LOC: SED 12:59 → STU 18:59
PROVIDERS: ADMIT Internal Medicine; ATTEND Internal Medicine
DX: A41.9 Sepsis, unspecified organism (principal); I21.A1 Myocardial infarction type 2; I50.43 Acute on chronic combined systolic (congestive) and diastolic (congestive) heart failure; E43 Unspecified severe protein-calorie malnutrition; L03.116 Cellulitis of left lower limb; L03.115 Cellulitis of right lower limb; J45.901 Unspecified asthma with (acute) exacerbation; I13.0 Hypertensive heart and chronic kidney disease with heart failure and stage 1 through stage 4 chronic kidney disease, or unspecified chronic kidney disease; I48.1 Persistent atrial fibrillation; N17.9 Acute kidney failure, unspecified; N18.4 Chronic kidney disease, stage 4 (severe); Z68.43 Body mass index [BMI] 50.0-59.9, adult; Z66 Do not resuscitate; J44.9 Chronic obstructive pulmonary disease, unspecified; E78.5 Hyperlipidemia, unspecified; E66.01 Morbid (severe) obesity due to excess calories; M54.89 Other dorsalgia; G89.29 Other chronic pain; L53.8 Other specified erythematous conditions; D50.9 Iron deficiency anemia, unspecified; R60.1 Generalized edema; Z51.5 Encounter for palliative care; E03.9 Hypothyroidism, unspecified; M10.9 Gout, unspecified; M48.00 Spinal stenosis, site unspecified; E11.22 Type 2 diabetes mellitus with diabetic chronic kidney disease; W01.0XXA Fall on same level from slipping, tripping and stumbling without subsequent striking against object, initial encounter; Y93.89 Activity, other specified; Y92.091 Bathroom in other non-institutional residence as the place of occurrence of the external cause; Y99.8 Other external cause status; Z88.0 Allergy status to penicillin; Z88.2 Allergy status to sulfonamides; Z79.01 Long term (current) use of anticoagulants; Z79.899 Other long term (current) drug therapy; Z90.710 Acquired absence of both cervix and uterus; Z90.49 Acquired absence of other specified parts of digestive tract; Z83.3 Family history of diabetes mellitus
CPT/HCPCS: 36415; 71045; 72131; 72170-TC; 72192-TC; 80048; 80053; 81000-TC; 82043; 82550-TC; 82570; 82570-TC; 82607; 82962; 83540-TC; 83550-TC; 83605; 83735-TC; 83880; 84100-TC; 84302-TC; 84439; 84443-TC; 84484; 84550-TC; 85025; 85610-TC; 87040-TC; 87086; 93005; 93306; 94640; 94760; 96361; 96365; 96366; 96367; 96375; 97163; 99285; G0378; J1885; J1940; J1956; J2270; J2916; J3370; J3490; J7030; J7060; J7620; P9046

== ENCOUNTER 2022-12-26 00:17 | Inpatient (IN) | payer OTHER ==
[~2022-12-26] VITALS: Ht 157.5 cm; Wt 81.6 kg
[2022-12-26 00:17] VITALS: BP_SYST 157
[~2022-12-26 00:17] MED LIST changes: +APIX2.5T PO; -ASPI-1153 PO; +CLIN-142 PO; +EZET10TA30 PO; -GABA-531 PO; +GABA-533 PO; +HYDR-3925 PO; -HYDR-4100 PO; +LACT1CAP71 PO; -LEVO500T20 PO; +LEVO750T64 PO; -METO5TAB8 PO; +METO5TAB9 PO; -MONT10TA25 PO; -NOR10 PO; -POTA8TAB4 PO; +POTA8TAB66 PO
[2022-12-26] MEDS ORDERED: iohexoL 350 mgI/mL, 100 ML INFUS..BTL IV ONE ×2 (00:34→03:28)
[2022-12-26 01:28] LABS: BASOPHILS % (AUTO) 0.2 % (0.0-2.0); EOSINOPHILS # (AUTO) 0.3 K/uL (0.0-0.4); HEMATOCRIT 30.6 % (36-48); LYMPHOCYTES # (AUTO) 2.7 K/uL (1.0-5.5); LYMPHOCYTES % (AUTO) 19.9 % (20.5-51.5); MEAN CORPUSCULAR HEMOGLOBIN 31 pg (27-31); MEAN CORPUSCULAR HGB CONC 33 % (32-36); MEAN CORPUSCULAR VOLUME 94 fL (79.0-98.0); MONOCYTES # (AUTO) 1.2 K/uL (0.0-1.0); MONOCYTES % (AUTO) 8.8 % (1.7-9.3); NEUTROPHILS # (AUTO) 9.2 K/uL (1.8-7.7); NEUTROPHILS % (AUTO) 69.1 % (40.0-70.0); PLATELET COUNT (AUTO) 128 K/uL (130-430); RED BLOOD CELL COUNT(AUTO) 3.25 MIL/uL (4.2-6.2); RED CELL DISTRIBUTION WIDTH 17.7 % (9.0-15.0); WHITE BLOOD COUNT (AUTO) 13.4 K/uL (4.8-10.8)
[2022-12-26 01:43] LABS: ANION GAP 15 (5-15); CALCIUM 9.1 mg/dL (8.4-11.0); CHLORIDE 97 mmol/L (98-107); CREATININE 1.59 mg/dL (0.55-1.30); GLUCOSE 103 mg/dL (70-99); UREA NITROGEN, BLOOD 22 mg/dL (8-21)
[2022-12-26 01:48] LABS: INR 1.1 (0.8-1.2); PROTHROMBIN TIME 10.9 SECS (9.5-12.5)
[2022-12-26 01:50] LABS: ALANINE AMINOTRANSFERASE 20 U/L (12-78); ALBUMIN 3.4 g/dL (3.4-4.8); ASPARTATE AMINOTRANSFERASE 17 U/L (10-37); TOTAL BILIRUBIN 1.1 mg/dL (0.0-1.0)
[2022-12-26 02:33] LABS: PHOSPHORUS 3.5 mg/dL (2.7-4.5)
[2022-12-26] MEDS ORDERED: MAGNESIUM SULFATE 50 ML IV ONE (03:00)
[2022-12-26] MEDS ORDERED: KCL 20 mEq in 100 mL (PREMIX) 100 ML IV ONE ×4 (03:00→14:30)
[2022-12-26] MEDS ORDERED: ASPIRIN 325 MG TABLET PO ONE (03:15)
[2022-12-26] MEDS ORDERED: LORazepam 2 MG/ML VIAL IVP PRN (06:15)
[2022-12-26] MEDS ORDERED: DOCUSATE SODIUM 100 MG CAPSULE PO PRN (06:15)
[2022-12-26] MEDS ORDERED: POTASSIUM CHLORIDE 20 MEQ TAB.PRT.SR PO PRN (06:15)
[2022-12-26] MEDS ORDERED: ONDANSETRON HCL 4 MG/2 ML VIAL IVP PRN (06:15)
[2022-12-26] MEDS ORDERED: MAGNESIUM SULFATE 50 ML IV PRN (06:15)
[2022-12-26] MEDS ORDERED: ACETAMINOPHEN 325 MG TABLET PO PRN ×2 (06:15→06:30)
[2022-12-26] MEDS ORDERED: MUPIROCIN 2% TOPICAL OINTMENT 22 GM NS PRN (06:15)
[2022-12-26] MEDS ORDERED: DEXTROSE 50% JECT 50 ML DISP.SYRIN IVP PRN (06:30)
[2022-12-26] MEDS ORDERED: D5NS 1,000 ML IV ONE (06:30)
[2022-12-26] MEDS ORDERED: INSULIN LISPRO SLIDING SCALE 100 UNITS/ML, 3 ML VIAL (humaLOG) SUBCUT PRN (06:30)
[2022-12-26] MEDS: ALLOPURINOL 100 MG TABLET (ZYLOPRIM) PO SCH ×2 (09:00→21:40)
[2022-12-26 09:27] LABS: ANION GAP 15 (5-15); CALCIUM 8.8 mg/dL (8.4-11.0); CHLORIDE 97 mmol/L (98-107); CREATININE 1.51 mg/dL (0.55-1.30); GLUCOSE 95 mg/dL (70-99); UREA NITROGEN, BLOOD 21 mg/dL (8-21)
[2022-12-26 09:31] LABS: ALANINE AMINOTRANSFERASE 19 U/L (12-78); ALBUMIN 3.3 g/dL (3.4-4.8); ASPARTATE AMINOTRANSFERASE 19 U/L (10-37)
[2022-12-26] MEDS: ASPIRIN 81 MG TAB.CHEW PO SCH (11:24)
[2022-12-26] MEDS: ATORVASTATIN 20 MG TABLET PO SCH (11:24)
[2022-12-26] MEDS: LEVOTHYROXINE SODIUM 0.05 MG TABLET PO SCH (11:25)
[2022-12-26 12:13] LABS: BILIRUBIN,URINE 2+ (NEGATIVE); BLOOD, URINE NEGATIVE (NEGATIVE); CLARITY/URINE CLEAR (CLEAR); COLOR,URINE YELLOW (YELLOW); GLUCOSE,URINE NEGATIVE (NEGATIVE); KETONES,URINE 1+ (NEGATIVE); LEUKOCYTE ESTERASE ,URINE NEGATIVE (NEGATIVE); NITRITE, URINE NEGATIVE (NEGATIVE); PH,URINE 5.5 (5.0-8.0); PROTEIN URINE 3+ (NEGATIVE); UROBILINOGEN,URINE 0.2 (0.2-1.0)
[2022-12-26] MEDS: cefTRIAXone 1 GM IVPB PREMIX 50 ML IV SCH (12:17)
[2022-12-26 12:26] LABS: BARBITURATE, URINE POSITIVE (NEG <=200); BENZODIAZEPINE, URINE NEGATIVE (NEG <=150); CANNABINOID, URINE NEGATIVE (NEG <=50); COCAINE, URINE NEGATIVE (NEG <=150); METHAMPHETAMINES SCREEN,URINE NEGATIVE (NEG <=500); OPIATE, URINE POSITIVE (NEG <=100); PHENCYCLIDINE SCREEN,URINE NEGATIVE (NEG <=25); UR TRICYCLIC ANTIDEPRESSANTS NEGATIVE (NEG <=300); URINE AMPHETAMINE NEGATIVE (NEG <=500); URINE METHADONE NEGATIVE (NEG <=200); URINE OXYCODONE SCREEN NEGATIVE (NEG <=100); URINE PROPOXYPHENE SCREEN NEGATIVE (NEG <=300)
[2022-12-26 12:52] LABS: BACTERIA,URINE RARE /HPF (None Seen); RBC,URINE 0-3 /HPF (0-3); WBC,URINE 0-3 /HPF (0-3)
[2022-12-26 17:39] LABS: ALANINE AMINOTRANSFERASE 19 U/L (12-78); ALBUMIN 3.1 g/dL (3.4-4.8); ANION GAP 12 (5-15); ASPARTATE AMINOTRANSFERASE 15 U/L (10-37); CALCIUM 8.8 mg/dL (8.4-11.0); CHLORIDE 99 mmol/L (98-107); CREATININE 1.43 mg/dL (0.55-1.30); GLUCOSE 118 mg/dL (70-99); TOTAL BILIRUBIN 0.9 mg/dL (0.0-1.0); UREA NITROGEN, BLOOD 21 mg/dL (8-21)
[2022-12-26 20:00] VITALS: BP_SYST 148
[2022-12-26] MEDS: APIXABAN 2.5 MG TABLET PO SCH (21:42)
[2022-12-27 00:22] VITALS: BP_SYST 128
[2022-12-27] MEDS: MORPHINE 2 MG/ML INJ. SYRINGE IVP PRN ×2 (00:28→21:03)
[2022-12-27] MEDS: LEVOTHYROXINE SODIUM 0.05 MG TABLET PO SCH (05:32)
[2022-12-27 10:13] LABS: BASOPHILS % (AUTO) 0.3 % (0.0-2.0); EOSINOPHILS # (AUTO) 0.3 K/uL (0.0-0.4); HEMATOCRIT 25.8 % (36-48); HEMOGLOBIN 8.6 g/dL (12.0-16.0); LYMPHOCYTES # (AUTO) 1.5 K/uL (1.0-5.5); MEAN CORPUSCULAR HEMOGLOBIN 31 pg (27-31); MEAN CORPUSCULAR HGB CONC 33 % (32-36); MEAN CORPUSCULAR VOLUME 94 fL (79.0-98.0); MONOCYTES # (AUTO) 1.1 K/uL (0.0-1.0); MONOCYTES % (AUTO) 8.7 % (1.7-9.3); NEUTROPHILS # (AUTO) 9.8 K/uL (1.8-7.7); PLATELET COUNT (AUTO) 122 K/uL (130-430); RED BLOOD CELL COUNT(AUTO) 2.75 MIL/uL (4.2-6.2); RED CELL DISTRIBUTION WIDTH 18.6 % (9.0-15.0); WHITE BLOOD COUNT (AUTO) 12.7 K/uL (4.8-10.8)
[2022-12-27 11:35] VITALS: BP_SYST 138
[2022-12-27 12:32] LABS: INR 1.1 (0.8-1.2); PROTHROMBIN TIME 10.9 SECS (9.5-12.5)
[2022-12-27 12:53] LABS: ALANINE AMINOTRANSFERASE 16 U/L (12-78); ALBUMIN 2.9 g/dL (3.4-4.8); ANION GAP 15 (5-15); ASPARTATE AMINOTRANSFERASE 18 U/L (10-37); CALCIUM 8.5 mg/dL (8.4-11.0); CHLORIDE 103 mmol/L (98-107); CHOLESTEROL 129 mg/dL (<200); CREATININE 1.54 mg/dL (0.55-1.30); GLUCOSE 122 mg/dL (70-99); HDL CHOLESTEROL 79 mg/dL (>55); THYROID STIMULATING HORMONE 1.84 uIu/mL (0.34-4.82); TOTAL BILIRUBIN 0.8 mg/dL (0.0-1.0); TRIGLYCERIDES 116 mg/dL (30-150); UREA NITROGEN, BLOOD 20 mg/dL (8-21)
[2022-12-27] MEDS: ASPIRIN 81 MG TAB.CHEW PO SCH (14:00)
[2022-12-27] MEDS: ATORVASTATIN 20 MG TABLET PO SCH (14:01)
[2022-12-27] MEDS: ALLOPURINOL 100 MG TABLET (ZYLOPRIM) PO SCH ×2 (14:02→20:53)
[2022-12-27] MEDS: APIXABAN 2.5 MG TABLET PO SCH ×2 (14:05→20:55)
[2022-12-27 15:30] VITALS: BP_SYST 150
[2022-12-27] MEDS: cefTRIAXone 1 GM IVPB PREMIX 50 ML IV SCH (16:35)
[2022-12-27 19:43] VITALS: BP_SYST 109
[2022-12-27] MEDS: LATANOPROST 2.5 ML DROPS (XALATAN) OP SCH (20:53)
[2022-12-28 00:05] VITALS: BP_SYST 145
[2022-12-28] MEDS: LEVOTHYROXINE SODIUM 0.05 MG TABLET PO SCH (05:37)
[2022-12-28 08:00] VITALS: BP_SYST 162
[2022-12-28] MEDS: ALLOPURINOL 100 MG TABLET (ZYLOPRIM) PO SCH ×2 (08:26→20:00)
[2022-12-28] MEDS: ASPIRIN 81 MG TAB.CHEW PO SCH (08:26)
[2022-12-28] MEDS: APIXABAN 2.5 MG TABLET PO SCH ×2 (08:27→20:01)
[2022-12-28] MEDS: ATORVASTATIN 20 MG TABLET PO SCH (08:27)
[2022-12-28 10:07] LABS: BASOPHILS # (AUTO) 0.2 K/uL (0.0-0.2); BASOPHILS % (AUTO) 1.8 % (0.0-2.0); EOSINOPHILS # (AUTO) 0.3 K/uL (0.0-0.4); EOSINOPHILS % (AUTO) 3.1 % (0.0-4.0); HEMATOCRIT 25.7 % (36-48); HEMOGLOBIN 8.5 g/dL (12.0-16.0); LYMPHOCYTES # (AUTO) 1.8 K/uL (1.0-5.5); LYMPHOCYTES % (AUTO) 19.4 % (20.5-51.5); MEAN CORPUSCULAR HEMOGLOBIN 31 pg (27-31); MEAN CORPUSCULAR HGB CONC 33 % (32-36); MEAN CORPUSCULAR VOLUME 94 fL (79.0-98.0); MONOCYTES # (AUTO) 0.7 K/uL (0.0-1.0); MONOCYTES % (AUTO) 7.1 % (1.7-9.3); NEUTROPHILS # (AUTO) 6.4 K/uL (1.8-7.7); NEUTROPHILS % (AUTO) 68.6 % (40.0-70.0); PLATELET COUNT (AUTO) 125 K/uL (130-430); RED BLOOD CELL COUNT(AUTO) 2.73 MIL/uL (4.2-6.2); RED CELL DISTRIBUTION WIDTH 18.5 % (9.0-15.0); WHITE BLOOD COUNT (AUTO) 9.4 K/uL (4.8-10.8)
[2022-12-28 10:44] LABS: ANION GAP 8 (5-15); CALCIUM 8.6 mg/dL (8.4-11.0); CHLORIDE 103 mmol/L (98-107); CREATININE 1.93 mg/dL (0.55-1.30); GLUCOSE 150 mg/dL (70-99); UREA NITROGEN, BLOOD 26 mg/dL (8-21)
[2022-12-28] MEDS: cefTRIAXone 1 GM IVPB PREMIX 50 ML IV SCH (11:25)
[2022-12-28 11:47] VITALS: BP_SYST 128
[2022-12-28 17:28] VITALS: BP_SYST 115
[2022-12-28] MEDS: LATANOPROST 2.5 ML DROPS (XALATAN) OP SCH (20:01)
[2022-12-28 20:02] VITALS: BP_SYST 160
[2022-12-28] MEDS: MORPHINE 2 MG/ML INJ. SYRINGE IVP PRN (20:02)
[2022-12-29] MEDS: MORPHINE 2 MG/ML INJ. SYRINGE IVP PRN ×4 (00:07→20:11)
[2022-12-29 00:13] VITALS: BP_SYST 160
[2022-12-29] MEDS: LEVOTHYROXINE SODIUM 0.05 MG TABLET PO SCH (05:44)
[2022-12-29 07:13] LABS: BASOPHILS # (AUTO) 0.1 K/uL (0.0-0.2); BASOPHILS % (AUTO) 1.2 % (0.0-2.0); EOSINOPHILS # (AUTO) 0.3 K/uL (0.0-0.4); EOSINOPHILS % (AUTO) 3.4 % (0.0-4.0); HEMATOCRIT 24.8 % (36-48); HEMOGLOBIN 8.2 g/dL (12.0-16.0); LYMPHOCYTES % (AUTO) 23.3 % (20.5-51.5); MEAN CORPUSCULAR HEMOGLOBIN 31 pg (27-31); MEAN CORPUSCULAR HGB CONC 33 % (32-36); MEAN CORPUSCULAR VOLUME 95 fL (79.0-98.0); MONOCYTES # (AUTO) 0.8 K/uL (0.0-1.0); NEUTROPHILS # (AUTO) 5.5 K/uL (1.8-7.7); NEUTROPHILS % (AUTO) 63.1 % (40.0-70.0); PLATELET COUNT (AUTO) 126 K/uL (130-430); RED BLOOD CELL COUNT(AUTO) 2.62 MIL/uL (4.2-6.2); WHITE BLOOD COUNT (AUTO) 8.7 K/uL (4.8-10.8)
[2022-12-29 07:42] LABS: ANION GAP 7 (5-15); CALCIUM 8.3 mg/dL (8.4-11.0); CHLORIDE 105 mmol/L (98-107); CREATININE 2.32 mg/dL (0.55-1.30); GLUCOSE 120 mg/dL (70-99); UREA NITROGEN, BLOOD 31 mg/dL (8-21)
[2022-12-29 08:14] VITALS: BP_SYST 118
[2022-12-29 08:20] VITALS: BP_SYST 174
[2022-12-29] MEDS: ATORVASTATIN 20 MG TABLET PO SCH (10:11)
[2022-12-29] MEDS: ALLOPURINOL 100 MG TABLET (ZYLOPRIM) PO SCH ×2 (10:11→20:06)
[2022-12-29] MEDS: ASPIRIN 81 MG TAB.CHEW PO SCH (10:11)
[2022-12-29] MEDS: APIXABAN 2.5 MG TABLET PO SCH ×2 (10:12→20:07)
[2022-12-29] MEDS ORDERED: MAGNESIUM SULFATE 50 ML IV ONE (10:45)
[2022-12-29 11:26] VITALS: BP_SYST 151
[2022-12-29] MEDS: NACL 0.9% 1,000 ML IV SCH (12:28)
[2022-12-29] MEDS: cefTRIAXone 1 GM IVPB PREMIX 50 ML IV SCH (13:40)
[2022-12-29 15:52] VITALS: BP_SYST 155
[2022-12-29 20:00] VITALS: BP_SYST 158
[2022-12-29] MEDS: LATANOPROST 2.5 ML DROPS (XALATAN) OP SCH (20:11)
[2022-12-30 00:44] VITALS: BP_SYST 156
[2022-12-30] MEDS: NACL 0.9% 1,000 ML IV SCH ×3 (03:21→20:03)
[2022-12-30] MEDS: LEVOTHYROXINE SODIUM 0.05 MG TABLET PO SCH (06:08)
[2022-12-30 07:43] LABS: BASOPHILS # (AUTO) 0.1 K/uL (0.0-0.2); EOSINOPHILS # (AUTO) 0.4 K/uL (0.0-0.4); EOSINOPHILS % (AUTO) 4.9 % (0.0-4.0); HEMATOCRIT 25.5 % (36-48); HEMOGLOBIN 8.5 g/dL (12.0-16.0); LYMPHOCYTES # (AUTO) 1.6 K/uL (1.0-5.5); LYMPHOCYTES % (AUTO) 19.6 % (20.5-51.5); MEAN CORPUSCULAR HEMOGLOBIN 32 pg (27-31); MEAN CORPUSCULAR HGB CONC 33 % (32-36); MEAN CORPUSCULAR VOLUME 95 fL (79.0-98.0); MONOCYTES # (AUTO) 0.8 K/uL (0.0-1.0); MONOCYTES % (AUTO) 9.4 % (1.7-9.3); NEUTROPHILS # (AUTO) 5.4 K/uL (1.8-7.7); NEUTROPHILS % (AUTO) 65.1 % (40.0-70.0); PLATELET COUNT (AUTO) 144 K/uL (130-430); WHITE BLOOD COUNT (AUTO) 8.3 K/uL (4.8-10.8)
[2022-12-30 07:52] VITALS: BP_SYST 155
[2022-12-30 08:26] LABS: ANION GAP 9 (5-15); CALCIUM 8.8 mg/dL (8.4-11.0); CHLORIDE 105 mmol/L (98-107); CREATININE 1.93 mg/dL (0.55-1.30); GLUCOSE 112 mg/dL (70-99); UREA NITROGEN, BLOOD 27 mg/dL (8-21)
[2022-12-30] MEDS: ATORVASTATIN 20 MG TABLET PO SCH (09:04)
[2022-12-30] MEDS: ALLOPURINOL 100 MG TABLET (ZYLOPRIM) PO SCH ×2 (09:05→20:03)
[2022-12-30] MEDS: ASPIRIN 81 MG TAB.CHEW PO SCH (09:05)
[2022-12-30] MEDS: APIXABAN 2.5 MG TABLET PO SCH ×2 (09:13→20:03)
[2022-12-30 11:34] VITALS: BP_SYST 169
[2022-12-30 11:40] VITALS: BP_SYST 160
[2022-12-30] MEDS: cefTRIAXone 1 GM IVPB PREMIX 50 ML IV SCH (11:45)
[2022-12-30 15:02] VITALS: BP_SYST 152
[2022-12-30] MEDS: MORPHINE 2 MG/ML INJ. SYRINGE IVP PRN ×2 (15:06→20:04)
[2022-12-30 20:00] VITALS: BP_SYST 155
[2022-12-30] MEDS: LATANOPROST 2.5 ML DROPS (XALATAN) OP SCH (20:03)
[2022-12-31 00:17] VITALS: BP_SYST 165
[2022-12-31] MEDS: LEVOTHYROXINE SODIUM 0.05 MG TABLET PO SCH (06:06)
[2022-12-31 06:36] LABS: BASOPHILS # (AUTO) 0.1 K/uL (0.0-0.2); BASOPHILS % (AUTO) 0.8 % (0.0-2.0); EOSINOPHILS # (AUTO) 0.5 K/uL (0.0-0.4); EOSINOPHILS % (AUTO) 6.3 % (0.0-4.0); HEMATOCRIT 25.2 % (36-48); HEMOGLOBIN 8.7 g/dL (12.0-16.0); LYMPHOCYTES # (AUTO) 1.6 K/uL (1.0-5.5); LYMPHOCYTES % (AUTO) 19.2 % (20.5-51.5); MEAN CORPUSCULAR HEMOGLOBIN 33 pg (27-31); MEAN CORPUSCULAR HGB CONC 35 % (32-36); MEAN CORPUSCULAR VOLUME 95 fL (79.0-98.0); MONOCYTES # (AUTO) 0.7 K/uL (0.0-1.0); MONOCYTES % (AUTO) 8.7 % (1.7-9.3); NEUTROPHILS # (AUTO) 5.3 K/uL (1.8-7.7); PLATELET COUNT (AUTO) 153 K/uL (130-430); RED BLOOD CELL COUNT(AUTO) 2.66 MIL/uL (4.2-6.2); RED CELL DISTRIBUTION WIDTH 18.5 % (9.0-15.0); WHITE BLOOD COUNT (AUTO) 8.2 K/uL (4.8-10.8)
[2022-12-31 07:29] LABS: ANION GAP 8 (5-15); CALCIUM 9.2 mg/dL (8.4-11.0); CHLORIDE 104 mmol/L (98-107); CREATININE 1.58 mg/dL (0.55-1.30); GLUCOSE 117 mg/dL (70-99); UREA NITROGEN, BLOOD 24 mg/dL (8-21)
[2022-12-31 08:00] VITALS: BP_SYST 158
[2022-12-31] MEDS ORDERED: NACL 0.9% 1,000 ML IV SCH (09:00)
[2022-12-31] MEDS: MORPHINE 2 MG/ML INJ. SYRINGE IVP PRN ×2 (09:37→15:39)
[2022-12-31] MEDS: ASPIRIN 81 MG TAB.CHEW PO SCH (09:38)
[2022-12-31] MEDS: ATORVASTATIN 20 MG TABLET PO SCH (09:38)
[2022-12-31] MEDS: APIXABAN 2.5 MG TABLET PO SCH (09:39)
[2022-12-31] MEDS: ALLOPURINOL 100 MG TABLET (ZYLOPRIM) PO SCH (09:39)
[2022-12-31 11:24] VITALS: BP_SYST 159
[2022-12-31] MEDS: cefTRIAXone 1 GM IVPB PREMIX 50 ML IV SCH (12:03)
[2022-12-31 15:11] VITALS: BP_SYST 152
[2022-12-31 15:35] VITALS: BP_SYST 152
== END 2022-12-31 16:00 | DRG 73 ==
LOC: SED 00:17 → STU 06:02
PROVIDERS: ADMIT Family Medicine; ATTEND Family Medicine
DX: G90.9 Disorder of the autonomic nervous system, unspecified (principal); I21.A1 Myocardial infarction type 2; N17.0 Acute kidney failure with tubular necrosis; G45.9 Transient cerebral ischemic attack, unspecified; I48.20 Chronic atrial fibrillation, unspecified; E46 Unspecified protein-calorie malnutrition; G40.209 Localization-related (focal) (partial) symptomatic epilepsy and epileptic syndromes with complex partial seizures, not intractable, without status epilepticus; E86.0 Dehydration; E87.6 Hypokalemia; R47.1 Dysarthria and anarthria; E03.9 Hypothyroidism, unspecified; E11.9 Type 2 diabetes mellitus without complications; E78.5 Hyperlipidemia, unspecified; F03.90 Unspecified dementia, unspecified severity, without behavioral disturbance, psychotic disturbance, mood disturbance, and anxiety; G89.4 Chronic pain syndrome; I50.9 Heart failure, unspecified; I11.0 Hypertensive heart disease with heart failure; J44.9 Chronic obstructive pulmonary disease, unspecified; M19.90 Unspecified osteoarthritis, unspecified site; D72.829 Elevated white blood cell count, unspecified; D63.8 Anemia in other chronic diseases classified elsewhere; E83.42 Hypomagnesemia; Z68.32 Body mass index [BMI] 32.0-32.9, adult; Z20.822 Contact with and (suspected) exposure to COVID-19; N14.11 Contrast-induced nephropathy; M10.9 Gout, unspecified; H40.9 Unspecified glaucoma; E87.8 Other disorders of electrolyte and fluid balance, not elsewhere classified; Z79.01 Long term (current) use of anticoagulants; Z88.0 Allergy status to penicillin; Z88.2 Allergy status to sulfonamides; Z79.84 Long term (current) use of oral hypoglycemic drugs; Z79.899 Other long term (current) drug therapy
CPT/HCPCS: 36415; 70450-TC; 70496; 70498; 71045; 73060-TC; 76376; 80048; 80053; 80061; 80307; 81000; 82962; 83735; 83880; 84100; 84443; 84484; 85025; 85610-TC; 85730-TC; 86886; 86900; 86901; 87081; 93005; 93306; 95816; 96361; 96365; 97110-GP; 97112-GP; 97163-GP; 97530-GP; 99291; G0378; J0696; J2270; J3475; J3480; Q9967